=== PATIENT | female | born 1930 | race Caucasian/White ===

== ENCOUNTER 2016-08-11 17:24 | Emergency (ER) | payer OTHER ==
[~2016-08-11] VITALS: Ht 162.6 cm; Wt 55.3 kg
[2016-08-11 17:30] VITALS: TEMP 36.7; Ht 162.6 cm; Wt 55.3 kg
[2016-08-11] MEDS ORDERED: ASPI325T39 PO (18:17)
[2016-08-11] MEDS ORDERED: LOVASTATIN PO (18:17)
[2016-08-11] MEDS ORDERED: LISIPOW PO (18:17)
[2016-08-11 18:27] LABS: BASO % 0.2 %; BASO ABS # 0.01 K/uL (0-0.2); COMPLETE YES; EOS % 0.5 %; HEMATOCRIT 42.7 % (37-47); IG% 0.2 %; LYMPH % 20.7 %; LYMPH ABS # 1.19 K/uL (1.2-3.4); MEAN CELL VOLUME 95.5 fL (80-100); MEAN CORPUSCULAR HGB CONC 31.4 g/dl (32-36); MEAN PLATELET VOLUME 9.7 fL (7.4-10.4); MONO % 8.9 %; NEUT % 69.5 %; PLATELET COUNT 215 K/uL (130-400); RED BLOOD COUNT 4.47 M/uL (4.2-5.4); WHITE BLOOD COUNT 5.76 K/uL (4.8-10.8)
[2016-08-11 18:45] LABS: URINE APPEARANCE CLEAR (CLEAR); URINE BILIRUBIN NEG (NEG); URINE COLOR YELLOW; URINE EPITHELIAL CELL AUTO >30 /lpf (0-5); URINE NITRITE NEG (NEG); URINE SPECIFIC GRAVITY 1.014 (1.000-1.030); UROBILINOGEN NEG (NEG); ZZUR CULT IF INDIC CLEAN CATCH NO
[2016-08-11 18:45] LABS: BUN/CREATININE RATIO 14.2 (10-20); CALCIUM 9.1 mg/dl (8.5-10.1); CREATININE 1.2 mg/dl (0.60-1.20); POTASSIUM 4.2 mmol/L (3.5-5.1)
[2016-08-11 18:47] LABS: MANUAL MICROSCOPIC REQUIRED? NO; REVIEW REQ? NO
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
[2016-08-11 21:15] VITALS: BP 134/79; PULSE 67; O2SAT 95
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
== END 2016-08-11 21:40 | disposition home or self-care (01) ==
LOC: C.EDB 17:27
DX: Z04.1 Encounter for examination and observation following transport accident (principal); V99.XXXA Unspecified transport accident, initial encounter; R41.0 Disorientation, unspecified; I10 Essential (primary) hypertension; Z87.891 Personal history of nicotine dependence; Z79.82 Long term (current) use of aspirin; Z79.899 Other long term (current) drug therapy